=== PATIENT | female | born 1955 | race American Indian/Alaskan Native ===

== ENCOUNTER 2021-09-01 06:43 | Emergency (ER) | payer MEDICARE, OTHER ==
[2021-09-01] MEDS ORDERED: IPRATROPIUM 0.02% NEBU 2.5 ML IH ONE (06:46)
[2021-09-01] MEDS ORDERED: MAGNESIUM SULFATE 2 GM/50 ML BAG IV ONE (06:46)
[2021-09-01] MEDS ORDERED: ALBUTEROL 2.5 MG/3 ML NEBU IH ONE (06:46)
[2021-09-01] MEDS ORDERED: FUROSEMIDE 40 MG/4 ML INJ IV ONE (06:46)
[2021-09-01] MEDS ORDERED: methylPREDNISolone Sod Succinate 125 MG/2 ML INJ IV ONE (06:46)
--- NOTE | 2021-09-01 07:05 | Emergency Department Report ---
ED Shortness of Breath HPI - General Chief Complaint: Dyspnea/Respdistress Stated Complaint: MICHA Time Seen by Provider: 09/01/21 06:45 Source: patient, EMS Mode of arrival: Stretcher Limitations: No Limitations - History of Present Illness Initial Comments: Ms. Flowers is a 66-year-old female with history of COPD, congestive heart failure and hypertension. Patient brought to the emergency room via EMS from home for evaluation of shortness of breath for the last few days getting worse this morning. Patient stated that she has been using her albuterol with no improvement. She described cough with greenish sputum. She also describes orthopnea. Patient denied any fever but she stated that she think that she has some chills. No abdominal pain, nausea or vomiting. Patient received albuterol 5 mg by EMS and stated that her symptoms improved initially but she feels like is coming back again. MD Complaint: shortness of breath, cough -: days(s) Known History Of: COPD, congestive heart failure Context: recent URI Treatments Prior to Arrival: oxygen, bronchodilator - Related Data Allergies Allergy/AdvReac Type Severity Reaction Status Date / Time No Known Allergies Allergy Verified 09/01/21 06:56 ED Review of Systems ROS: Stated complaint: MICHA Other details as noted in HPI Comment: All other systems reviewed and negative Constitutional: chills. denies: fever Respiratory: cough, orthopnea, shortness of breath, SOB with exertion, SOB at rest, wheezing. denies: stridor Cardiovascular: dyspnea on exertion, orthopnea. denies: chest pain, palpitations, edema Gastrointestinal: denies: abdominal pain, nausea, vomiting Musculoskeletal: denies: back pain Neurological: denies: headache, weakness, numbness, paresthesias, confusion, abnormal gait ED Past Medical Hx - Past Medical History Hx Hypertension: Yes Hx COPD: Yes Additional medical history: CAD - Surgical History Past Surgical History?: No ED Physical Exam - General Limitations: No Limitations General appearance: alert, in distress - Head Head exam: Present: atraumatic, normocephalic, normal inspection - Eye Eye exam: Present: normal appearance, PERRL - ENT ENT exam: Present: normal exam, normal orophraynx, mucous membranes moist - Neck Neck exam: Present: normal inspection, full ROM. Absent: tenderness, meningismus - Respiratory Respiratory exam: Present: respiratory distress, wheezes, rales, rhonchi, decreased breath sounds, prolonged expiratory. Absent: stridor, accessory muscle use - Cardiovascular Cardiovascular Exam: Present: regular rate, normal rhythm, normal heart sounds - GI/Abdominal GI/Abdominal exam: Present: soft, normal bowel sounds. Absent: distended, tenderness, guarding, rebound, rigid, organomegaly, mass, bruit, pulsatile mass, hernia - Extremities Exam Extremities exam: Present: normal inspection, full ROM, normal capillary refill. Absent: tenderness, pedal edema, joint swelling, calf tenderness - Back Exam Back exam: Present: normal inspection, full ROM. Absent: CVA tenderness (R), CVA tenderness (L) - Neurological Exam Neurological exam: Present: alert, oriented X3, CN II-XII intact, normal gait, reflexes normal. Absent: motor sensory deficit - Psychiatric Psychiatric exam: Present: normal mood - Skin Skin exam: Present: warm, intact, normal color ED Course Vital Signs 09/01/21 09/01/21 09/01/21 06:50 06:55 07:08 Temperature 97.7 F Pulse Rate 75 77 70 Respiratory 24 16 24 Rate Blood Pressure Blood Pressure 166/80 184/86 [Right] O2 Sat by Pulse 100 93 100 Oximetry 09/01/21 09/01/21 09/01/21 07:16 07:30 07:34 Temperature Pulse Rate 76 Respiratory 20 17 Rate Blood Pressure 150/79 150/79 Blood Pressure [Right] O2 Sat by Pulse 93 100 98 Oximetry 09/01/21 09/01/21 09/01/21 07:46 08:00 08:16 Temperature Pulse Rate 74 72 74 Respiratory 19 16 20 Rate Blood Pressure 161/93 137/78 137/78 Blood Pressure [Right] O2 Sat by Pulse 99 97 100 Oximetry 09/01/21 09/01/21 09/01/21 08:30 08:46 09:00 Temperature Pulse Rate 72 75 74 Respiratory 17 16 22 Rate Blood Pressure 137/78 147/68 135/71 Blood Pressure [Right] O2 Sat by Pulse 100 100 100 Oximetry 09/01/21 09/01/21 09:16 09:30 Temperature Pulse Rate 68 70 Respiratory 16 24 Rate Blood Pressure 135/71 157/85 Blood Pressure [Right] O2 Sat by Pulse 99 98 Oximetry ED Medical Decision Making - Lab Data Result diagrams: 09/01/21 07:01 09/01/21 07:01 - Radiology Data Radiology results: report reviewed - Medical Decision Making Ms. Flowers is a 66-year-old female with history of COPD, congestive heart failure and hypertension. Patient brought to the emergency room via EMS from home for evaluation of shortness of breath for the last few days getting worse this morning. Patient stated that she has been using her albuterol with no improvement. She described cough with greenish sputum. She also describes orthopnea. Patient denied any fever but she stated that she think that she has some chills. No abdominal pain, nausea or vomiting. Patient received albuterol 5 mg by EMS and stated that her symptoms improved initially but she feels like is coming back again. Patient remained stable in the ER with a stable vital sign. Patient received albuterol, Atrovent, Solu-Medrol, magnesium sulfate. Patient stated that she is feeling much better. Labs reviewed and is unremarkable. Chest x-ray is negative for acute finding. Patient given prescription for prednisone and Levaquin and advised to follow-up with her primary doctor in the next 2 to 3 days and to return to the ER if she develop any new symptoms. Critical care attestation.: If time is entered above; I have spent that time in minutes in the direct care of this critically ill patient, excluding procedure time. ED Disposition Clinical Impression: COPD exacerbation, Acute bronchitis Disposition: 01 HOME / SELF CARE / HOMELESS Is pt being admited?: No Condition: Stable Instructions: Chronic Obstructive Pulmonary Disease (ED), Acute Bronchitis (ED), Acute Bronchitis, Adult, [id number], Chronic Obstructive Pulmonary Disease, [id number] Referrals: PRIMARY CARE, [Primary Care Provider] - 3-5 Days
[2021-09-01 07:23] LABS: Basophils % (Auto) 0.3 % (0.0-1.8); Eosinophils # (Auto) 0.1 K/mm3 (0.0-0.4); Hemoglobin 13.2 gm/dl (10.1-14.3); Lymphocytes # (Auto) 1.4 K/mm3 (1.2-5.4); Lymphocytes % (Auto) 27.7 % (13.4-35.0); Mean Corpuscular HGB Conc 34 % (30-34); Mean Corpuscular Volume 94 fl (79-97); Monocytes # (Auto) 0.5 K/mm3 (0.0-0.8); Monocytes % (Auto) 9.7 % (0.0-7.3); Platelet Count 152 K/mm3 (140-440); Red Blood Count 4.16 M/mm3 (3.65-5.03)
[2021-09-01 07:29] LABS: INR 0.97 (0.87-1.13)
[2021-09-01 07:30] LABS: Partial Thromboplastin Time 25.3 Sec. (24.2-36.6)
[2021-09-01 07:42] LABS: Alanine Aminotransferase 14 units/L (7-56); Albumin 4.1 g/dL (3.9-5); Blood Urea Nitrogen 8 mg/dL (7-17); Calcium 8.7 mg/dL (8.4-10.2); Hemolysis Index 8
--- NOTE | 2021-09-01 07:46 | XRay Report ---
CHEST 1 VIEW INDICATION: Dyspnea. COMPARISON: 03/17/2021 FINDINGS: Support devices: None. Heart: Heart size appears borderline. Lungs/Pleura: There is blunting of the right costophrenic angle suggesting a small right pleural effu adelfo. The lungs are clear otherwise. No pneumothorax. Additional findings: None. IMPRESSION: Borderline heart size. Small right pleural effusion. Consider mild CHF. Signer Name: Devyn Raza Jr, MD Signed: 09/01/2021 7:41 AM Workstation Name: [id number]
[2021-09-01 08:00] LABS: BUN/Creatinine Ratio 40; Bilirubin,Direct < 0.2 mg/dL (0-0.2)
[2021-09-01 08:37] LABS: Mucus,Urine FEW /HPF; WBC,Urine < 1.0 /HPF (0.0-6.0)
[2021-09-01 08:46] LABS: Bilirubin,Urine Negative (Negative); Color,Urine Straw (Yellow)
[2021-09-01 08:47] LABS: Blood,Urine Negative (Negative); Protein,Urine <15 mg/dL mg/dL (Negative); Urobilinogen,Urine < 2.0 mg/dL (<2.0)
[2021-09-01 12:09] VITALS: BP 162/74
== END 2021-09-01 12:12 | disposition home or self-care (01) ==
LOC: ED 06:43
DX: J44.1 Chronic obstructive pulmonary disease with (acute) exacerbation (principal); J40 Bronchitis, not specified as acute or chronic; I25.10 Atherosclerotic heart disease of native coronary artery without angina pectoris; I11.0 Hypertensive heart disease with heart failure; I50.9 Heart failure, unspecified
CPT/HCPCS: 36415; 71045; 80048; 80076; 81001; 82140; 83880; 84484; 85025; 85610; 85730; 87040; 94640; 96365; 96375; 99284; J1940; J2930; J3475

== ENCOUNTER 2022-02-03 09:19 | Emergency (ER) | payer MEDICARE ==
--- NOTE | 2022-02-03 11:40 | Emergency Department Report ---
HPI - General Chief Complaint: Extremity Injury, Upper Time Seen by Provider: 02/03/22 11:04 - HPI HPI: For the last 4 days the patient has been experiencing a severe left upper extremity pain. Patient has no injuries on it and the pain is completely gone now but she reports that the pain was a sharp severe on her left shoulder arm and forearm. She denies numbness tingling or weakness of the extremity. Even though the pain is gone now she wanted to get her heart checked to make sure that this was not referred pain from her heart. The pain was constant for 4 days and then is completely gone. She denies nausea vomiting fever chills shortness of breath or any other associated symptoms. Movement did not make the pain any worse. She has not taken any medications for this. She has a history of metabolic syndrome. ED Past Medical Hx - Past Medical History Hx Hypertension: Yes Hx CVA: Yes (with loss of vision in right eye) Hx Diabetes: Yes Hx COPD: Yes Additional medical history: CAD - Social History Smoking Status: Current Some Day Smoker Substance Use Type: Alcohol - Medications Home Medications: Home Medications Medication Instructions Recorded Confirmed Last Taken Type Prednisone [predniSONE 10 mg 10 mg PO .TAPER #1 tab.ds.pk 09/01/21 Unknown Rx (6-Day Pack, 21 Tabs)] levoFLOXacin [Levaquin TAB] 500 mg PO QDAY #7 tablet 09/01/21 Unknown Rx Naproxen [Naprosyn] 500 mg PO BID 10 Days #20 tablet 02/03/22 Unknown Rx ED Review of Systems ROS: Stated complaint: LEFT SHOULDER AND ARM PAIN X 2 DAYS Other details as noted in HPI Comment: All other systems reviewed and negative Physical Exam - Physical Exam Vital Signs: Vital Signs 02/03/22 02/03/22 02/03/22 09:23 09:38 09:41 Temperature 98.7 F Pulse Rate 78 80 Respiratory 16 16 Rate Blood Pressure 183/88 Blood Pressure 168/88 [Right] O2 Sat by Pulse 97 96 96 Oximetry 02/03/22 11:12 Temperature Pulse Rate 82 Respiratory 16 Rate Blood Pressure Blood Pressure 158/82 [Right] O2 Sat by Pulse 97 Oximetry Physical Exam: Physical Exam: Constitutional: AAOX3. No acute distress. No diaphoresis. HENT: Normocephalic. Pupils equal and reactive. No throat edema or erythema. Neck: No neck rigidity or tenderness. Cardiovascular: Heart sounds: No murmur. Normal rate and regular rhythm. Pulses: Intact distal pulses. Lungs: No wheezing or rales. Chest wall: No tenderness. Abdominal: No distension. No mass/pulsatile mass. No abdominal tenderness, guarding nor rebound. Musculoskeletal: Normal range of motion. No edema, No calf TTP. Left upper extremity is within normal limits. Her pulses sensation range of motion are all within normal limits and there is no tenderness at all whatsoever in the left upper extremity. Range of motion of the left shoulder is normal as well as range of motion of the neck which has no tenderness palpation. Skin: Warm and dry. Neurological: Alert and oriented to person, place, and time. Psychiatric: Mood and affect normal. Normal cognition and memory. Normal judgement. ED Course Vital Signs 02/03/22 02/03/22 02/03/22 09:23 09:38 09:41 Temperature 98.7 F Pulse Rate 78 80 Respiratory 16 16 Rate Blood Pressure 183/88 Blood Pressure 168/88 [Right] O2 Sat by Pulse 97 96 96 Oximetry 02/03/22 11:12 Temperature Pulse Rate 82 Respiratory 16 Rate Blood Pressure Blood Pressure 158/82 [Right] O2 Sat by Pulse 97 Oximetry - Reevaluation(s) Reevaluation #1: 02/03/22 12:35 EKG done interpreted at 1210 shows a rate of 78, normal. The rhythm is sinus rhythm, normal. There is possible left atrial enlargement. There are no ST or T wave abnormalities. Reevaluation #2: 02/03/22 13:36 The patient's chemistries were all within normal limits the BNP is a little elevated but there is no failure on the x-ray. I will give her some Naprosyn for left upper extremity pain 02/03/22 13:37 and she will follow-up with her PCP. ED Medical Decision Making - Lab Data Result diagrams: 02/03/22 11:56 02/03/22 11:56 Critical care attestation.: If time is entered above; I have spent that time in minutes in the direct care of this critically ill patient, excluding procedure time. ED Disposition Clinical Impression: Muscular pain Disposition: 01 HOME / SELF CARE / HOMELESS Is pt being admited?: No Does the pt Need Aspirin: No Condition: Stable Prescriptions: Naproxen [Naprosyn] 500 mg PO BID 10 Days #20 tablet Referrals: DUONG PORTER PA [Primary Care Provider] - 3-5 Days Time of Disposition: 13:35 Print Language: GREEK
[2022-02-03 12:16] LABS: Basophils % (Auto) 0.6 % (0.0-1.8); Eosinophils % (Auto) 0.6 % (0.0-4.3); Hematocrit 40.2 % (30.3-42.9); Hemoglobin 13.3 gm/dl (10.1-14.3); Lymphocytes # (Auto) 1.6 K/mm3 (1.2-5.4); Lymphocytes % (Auto) 21.1 % (13.4-35.0); Mean Corpuscular HGB Conc 33 % (30-34); Mean Corpuscular Volume 95 fl (79-97); Monocytes # (Auto) 0.6 K/mm3 (0.0-0.8); Red Blood Count 4.24 M/mm3 (3.65-5.03); Red Cell Distribution Width 14.5 % (13.2-15.2)
[2022-02-03 12:20] LABS: Platelet Count 180 K/mm3 (140-440)
--- NOTE | 2022-02-03 12:20 | XRay Report ---
CHEST 1 VIEW 02/03/2022 11:11 AM INDICATION / CLINICAL INFORMATION: Chest Pain. COMPARISON: 09/01/2021. FINDINGS: SUPPORT DEVICES: None. HEART / MEDIASTINUM: Stable mild cardiomegaly. LUNGS / PLEURA: No significant pulmonary or pleural abnormality. No pneumothorax. ADDITIONAL FINDINGS: No significant additional findings. IMPRESSION: Stable mild cardiomegaly. Signer Name: Braden Araya MD Signed: 02/03/2022 12:16 PM Workstation Name: [id number]
[2022-02-03 12:42] LABS: Alanine Aminotransferase 6 units/L (7-56); Albumin 4.2 g/dL (3.9-5); Blood Urea Nitrogen 13 mg/dL (7-17); Calcium 9.6 mg/dL (8.4-10.2); Hemolysis Index 4
[2022-02-03 13:08] LABS: BUN/Creatinine Ratio 43
[2022-02-03 14:18] VITALS: BP 167/74
--- NOTE | 2022-02-05 20:02 | Electrocardiograph Report ---
[facility] Test Date: 2022-02-03 Test Time: 12:10:24 Pat Name: ELLEN YO Department: Room: Gender: F [employer]affold [employer]ter: bp : 1955 Requested By: CHAY MCDANIEL Order Number: [id number] Reading MD: Christine Villalba Measurements Intervals [place] Rate: 78 P: 47 LA: 193 QRS: -21 QRSD: 89 T: 72 QT: 411 QTc: 469 Interpretive Statements Sinus rhythm Probable left atrial enlargement No previous ECG available for comparison Electronically Signed On 02-05-2022 20:01:44 EDT by Christine Villalba
== END 2022-02-03 13:35 | disposition home or self-care (01) ==
LOC: ED 09:19
DX: M79.10 Myalgia, unspecified site (principal)
CPT/HCPCS: 36415; 71045; 80053; 83880; 84484; 85025; 93005; 99284